=== PATIENT | female | born 1980 | race African-American/Black ===

== ENCOUNTER 2018-06-01 16:43 | Emergency (ER) | payer OTHER ==
[~2018-06-01] VITALS: Ht 165.1 cm; Wt 72.6 kg
[~2018-06-01 16:43] MED LIST: ADDERALL 20 MG20 MG PO; ADDERALL 30 MG30 MG PO; ADDERALL XR 3030 MG PO
[2018-06-01 17:07] VITALS: BP 145/94
[2018-06-01] MEDS ORDERED: ZPAK PO (17:28)
[2018-06-01] MEDS ORDERED: PROAIR HFA8.5 GM INH (17:28)
[2018-06-01] MEDS ORDERED: PROMETHAZINE V473 ML PO (17:28)
[2018-06-01] MEDS ORDERED: NAPROSYN500 MG PO (17:28)
[2018-06-01] MEDS ORDERED: MEDROLDOSEPACK PO (17:28)
== END 2018-06-01 17:38 | disposition home or self-care (01) ==
LOC: M.ERS 16:43
DX: J20.9 Acute bronchitis, unspecified (principal); F90.9 Attention-deficit hyperactivity disorder, unspecified type; Z88.5 Allergy status to narcotic agent; Z88.6 Allergy status to analgesic agent; Z98.890 Other specified postprocedural states